=== PATIENT | male | born 1985 | race African-American/Black ===

== ENCOUNTER 2019-11-03 14:07 | Emergency (ER) | payer OTHER, SELFPAY ==
[2019-11-03 14:17] VITALS: BP 134/85; PULSE 72; RESP 20; TEMP 36.7; O2SAT 100
[2019-11-03 14:47] LABS: Glucose Point of Care 471 (65-105)
--- NOTE | 2019-11-03 14:48 | ED.RECABL ---
HPI - Recheck/Abnormal Lab/Rx General Chief Complaint: Recheck/Abnormal Lab/Rx Stated Complaint: ELEVATED BS Time Seen by Provider: 11/03/19 14:35 Source: patient and RN notes reviewed Mode of arrival: ambulatory Limitations: no limitations History of Present Illness HPI narrative: Pt is a 34 y/o male with a Hx of DM II, who presents to the ED with c/o hyperglycemia. He notes that he was diagnosed with diabetes roughly 1 year ago, but states that he hasn't taken his prescribed Metformin since November 2018. Pt notes that he has had dizziness, generalized weakness, and blurry vision for the past 2 days. He states that he was evaluated at an urgent care facility earlier today for these symptoms, and was advised to come to the ED due to his BS being 528. Pt denies any ABD pain, headache, or other symptoms. He notes that he rarely checks his BS. MD complaint: abnormal lab Returns today for: other (sent from facility due to abnormal lab) Description of abnormal result: Blood Glucose of 528 Associated symptoms: other (generalized weakness; dizziness; blurred vision) Related Data Home Medications Medication Instructions Recorded Confirmed No Home Medications 11/03/19 11/03/19 Allergies Allergy/AdvReac Type Severity Reaction Status Date / Time lactose AdvReac Unknown Diarrhea Verified 11/03/19 14:38 Shrimp Allergy Unknown Swelling Uncoded 11/22/18 08:15 Review of Systems Review of Systems: All systems reviewed & are unremarkable except as noted in HPI and below Constitutional: Constitutional: Reports weakness (generalized) Eyes: Eyes: Reports blurry vision Gastrointestinal: Gastrointestinal: Denies abdominal pain Neurologic: Reports dizziness and Denies headache(s) PMFSH Past Medical History Medical History Diabetes Right arm fracture Surgical History Surgical History No significant past surgical history Social History Social History Smoking status: Never smoker Exam Narrative: Exam Narrative: General appearance: Well-developed, well-nourished Skin: Normal color Head: Normocephalic, nontraumatic Eyes: Clear conjunctiva ENT: Oropharynx normal, ears normal, nose normal Neck: Supple, nontender Chest and respiratory: Airway patent, no respiratory distress, no accessory muscle use Heart: Regular rate/rhythm Abdomen: Soft, nontender, no organomegaly, quiet bowel sounds Vascular: Normal peripheral pulses, normal capillary refill. Musculoskeletal: Normal range of motion, nontender back Neurologic: Alert and oriented ?3, [employer] is normal as tested, no gross motor deficit Course Course Emergency Course: Improving Vital Signs Vital signs: Vital Signs Temperature 36.7 C 11/03/19 14:17 Pulse Rate 72 11/03/19 14:17 Respiratory Rate 11/03/19 14:17 Blood Pressure 134/85 11/03/19 14:17 Pulse Oximetry 100 11/03/19 14:17 Temperature 36.7 C 11/03/19 14:17 Pulse Rate 72 11/03/19 14:17 Respiratory Rate 11/03/19 14:17 Blood Pressure 134/85 11/03/19 14:17 Pulse Oximetry 100 11/03/19 14:17 MDM - Recheck/Abnormal Lab/Rx MDM Narrative Medical decision making narrative: Patient is noncompliance with his medications, last time had his diabetes medicine almost 1 year ago. Labs, blood gas, IV fluid ordered. Further plan to follow Differential Diagnosis Differential diagnosis: Likely encounter for medication refill and other (DKA, hyperosmolar hyperglycemia, noncompliance, electrolyte imbalance, urinary infection.) Lab Data Result diagrams: 11/03/19 14:43
[2019-11-03 14:50] LABS: Basophils Percent Auto 0.6 % (0.2-1.2); Eosinophils Absolute Auto 0.1 K/mm3 (0-0.3); Eosinophils Percent Auto 1.6 % (0-4.4); Hematocrit 45.2 % (42.0-52.0); Hemoglobin 15.4 g/dL (14.0-18.0); Immature Granulocyte Absolute 0.02 K/mm3 (0.00-0.031); Immature Granulocyte Percent A 0.3 % (0-0.5); Lymphocytes Absolute Auto 2.47 K/mm3 (0.9-3.2); Lymphocytes Percent Auto 39.1 % (18.3-44.2); Mean Corpuscular HGB Conc 34.1 g/dl (32-36); Mean Corpuscular Hemoglobin 28.3 pg (26-34); Mean Corpuscular Volume 83.1 fl (80-100); Mean Platelet Volume 10.4 fl (7.4-10.4); Monocytes Absolute Auto 0.4 K/mm3 (0.1-0.6); Monocytes Percent Auto 6.5 % (2.6-8.5); Neutrophils Absolute Auto 3.3 K/mm3 (1.3-6.7); Neutrophils Percent Auto 51.9 % (45.5-73.1); Platelet Count Result 258 k/mm3 (150-375); Red Blood Count 5.44 M/mm3 (4.6-6.20); Red Cell Distribution Width 12.4 % (11.5-14.5); White Blood Count 6.3 K/mm3 (4.5-10.0)
[2019-11-03 15:03] LABS: Alanine Aminotransferase 28 U/L (4-50); Albumin Level 4.2 g/dL (3.5-5.1); Alkaline Phosphatase 77 U/L (38-126); Aspartate Amino Transferase 29 U/L (17-59); Bilirubin,Total 0.4 mg/dL (0.2-1.3); Blood Urea Nitrogen 13 mg/dL (9-20); Calcium 9.4 mg/dL (8.4-10.2); Carbon Dioxide 25 mmol/L (22-30); Chloride 93 mmol/L (98-107); Estimated CRCL calculation 152 ml/min; Estimated Glomerular Filt Rate > 60; Glucose 463 mg/dL (75-110); Magnesium 1.9 mg/dL (1.6-2.3); Phosphorus 4.7 mg/dL (2.5-4.5); Sodium 130 mmol/L (137-145)
[2019-11-03 15:06] LABS: Beta-Hydroxybutyrate/Acetoacetate 0.34 mmol/L (0.02-0.27)
[2019-11-03 15:15] LABS: Alveolar/Arterial O2 Gradient 15.2 mmHg; Base Excess ABG 0.6 mEq/l (+/-2.0); Device ROOM AIR; Fractional Inspired Oxygen 21 %; HCO3 ABG 26.2 mEq/l (22.0-26.0); Modified Allen's Test Pass; Oxygen Content ABG 20.9 %vol (16.0-22.0); Oxygen Saturation ABG 95.6 % (95.0-100.0); Oxyhemoglobin 94.8 % THb (90.0-100.0); PCO2 ABG 45.4 mmHg (35.0-45.0); PO2 ABG 80.2 mmHg (80.0-100.0); PO2 FiO2 Ratio Arterial Blood 3.82 %; Site Drawn LEFT RADIAL; Total Hemoglobin 15.7 g/dL (12.0-18.0); pH ABG 7.379 (7.350-7.450)
[2019-11-03] MEDS: SODIUM CHLORIDE 0.9% IV 1,000 ML 999 ML IV CONT ×2 (15:17→17:28)
[2019-11-03 16:49] LABS: Glucose Point of Care 362 (65-105)
[2019-11-03 17:04] LABS: Add Urine Microscopic? YES; Appearance Urine Clear (Clear); Bilirubin Urine Negative (Negative); Blood Urine 1+ (Negative); Color Urine Straw (Yellow); Glucose Urine UA 3+ mg/dL (Negative); Ketones Urine Trace mg/dL (Negative); Leukocyte Esterase Ur Negative LEU/UL (Negative); Mucus Urine Rare /lpf; Nitrate Urine Negative (Negative); Protein Urine Negative (Negative); RBC Urine 0-2 /hpf (0-2); Urobilinogen Urine Negative mg/dL (<2.0); WBC Urine 0-3 /hpf
[2019-11-03] MEDS: INSULIN HUMAN REGULAR (*BKC) 100 UNITS/ML SUB-Q (17:28)
[2019-11-03 18:51] LABS: Glucose Point of Care 287 (65-105)
== END 2019-11-03 18:50 | disposition home or self-care (01) ==
PROVIDERS: Emergency Provider Emergency Medicine
DX: E11.65 Type 2 diabetes mellitus with hyperglycemia (principal); Z91.14 Patient's other noncompliance with medication regimen
CPT/HCPCS: 36415; 36600; 80053; 81001; 82010; 82805; 82948; 83735; 84100; 85025; 96360; 96361; 99283; J1815; J7030

== ENCOUNTER → 2021-01-25 08:14 | Outpatient (CLI) | payer OTHER, SELFPAY ==
[2021-01-27 00:40] LABS: SARS-CoV-2 RNA PCR Negative
== END ==
PROVIDERS: PCP Emergency Medicine; Visit Provider Emergency Medicine
DX: J06.9 Acute upper respiratory infection, unspecified (principal); Z20.822 Contact with and (suspected) exposure to COVID-19
CPT/HCPCS: C9803; U0003; U0005

== ENCOUNTER → 2021-02-20 06:39 | Outpatient (CLI) | payer OTHER, SELFPAY ==
[2021-02-21 16:58] LABS: SARS-CoV-2 RNA PCR Negative
== END ==
PROVIDERS: PCP Emergency Medicine; Visit Provider Emergency Medicine
DX: R51.9 Headache, unspecified (principal); Z20.822 Contact with and (suspected) exposure to COVID-19
CPT/HCPCS: C9803; U0003; U0005

== ENCOUNTER → 2021-09-06 02:15 | Outpatient (CLI) | payer OTHER, SELFPAY ==
[2021-09-06 17:54] LABS: SARS-CoV-2 RNA PCR Negative
== END ==
PROVIDERS: PCP Emergency Medicine; Visit Provider Emergency Medicine
DX: R68.89 Other general symptoms and signs (principal); Z20.822 Contact with and (suspected) exposure to COVID-19
CPT/HCPCS: C9803; U0003; U0005

== ENCOUNTER → 2021-10-19 02:17 | Outpatient (CLI) | payer OTHER, SELFPAY ==
[2021-10-20 15:56] LABS: SARS-CoV-2 RNA PCR Negative
== END ==
PROVIDERS: PCP Emergency Medicine; Visit Provider Emergency Medicine
DX: J06.9 Acute upper respiratory infection, unspecified (principal); Z20.822 Contact with and (suspected) exposure to COVID-19
CPT/HCPCS: C9803; U0003; U0005

== ENCOUNTER 2022-10-16 14:54 | Emergency (ER) | payer OTHER, SELFPAY ==
--- NOTE | ~2022-10-16 | CT_ITS ---
EXAMINATION: CT abdomen pelvis w con DATE: 10/16/2022 16:13 INDICATION: Left abdominal pain TECHNIQUE: Computed tomography (CT) of the abdomen and pelvis was performed with 100 mL Omnipaque-350 intravenous contrast. Automated exposure control and iterative reconstruction technique were employe d. The dose-length product was 1432.18 mGy-cm. COMPARISON: None FINDINGS: Lung bases are clear. Arch size is normal. No pericardial or pleural effusion. Calcified right hilar and mediastinal lymph nodes as well as a small splenic calcification consistent with old granulomatou s disease. Liver, gallbladder, pancreas, bilateral adrenal glands and kidneys are normal. Metallic fo reign body in the posterolateral left chest wall present since chest radiograph dated 12/09/2017. There are few scattered colonic diverticula without adjacent inflammatory stranding to suggest diverticula r colitis. Small bowel and appendix are normal. Bladder is normal. No free intraperitoneal gas or flu id. No pathologically enlarged abdominal or pelvic lymphadenopathy. Indeterminate lytic lesion with t hin sclerotic margins along the posterior wall of the L4 vertebral body. IMPRESSION: 1. No acute intra-abdominal/pelvic process. 2. Lytic lesion with thin sclerotic margin along the posterior wall of the L4 vertebral body. Would r ecommend nonemergent pre and postcontrast lumbar spine MR for further evaluation. Reviewed, dictated and finalized at location [facility] IMPRESSION: 1. No acute intra-abdominal/pelvic process. 2. Lytic lesion with thin sclerotic margin along the posterior wall of the L4 v ertebral body. Would recommend nonemergent pre and postcontrast lumbar spine MR for further evaluation.
[2022-10-16 14:56] VITALS: BP 152/87; PULSE 90; RESP 20; TEMP 37; O2SAT 99
--- NOTE | 2022-10-16 15:16 | ED.GENADULT ---
HPI - General Adult General Chief complaint: Abdominal Pain Stated complaint: acid reflux? Time Seen by Provider: 10/16/22 15:05 History of Present Illness HPI narrative: 37-year-old male with history of type 2 diabetes and noncompliance with his diabetes medications presenting to the emergency department for evaluation of left-sided abdominal pain that is worsened with eating. Patient states over the last 4 days he has had increased left-sided abdominal pain. Patient states he has left upper and lower abdominal pain. Patient states it is worsened with eating. Patient reports he does work at [employer] and has frequently been eating at [employer]. Related Data Allergies Allergy/AdvReac Type Severity Reaction Status Date / Time lactose AdvReac Unknown Diarrhea Verified 10/16/22 15:46 Shrimp Allergy Unknown Swelling Uncoded 10/16/22 15:46 Review of Systems Review of Systems: CONSTITUTIONAL: Denies fever, chills, or sweats. EYES: Denies visual changes, redness, or discharge. ENT: Denies rhinorrhea, congestion, sore throat, or otalgia. CARDIOVASCULAR: Denies chest pain, palpitations, or edema. RESPIRATORY: Denies cough or dyspnea. GASTROINTESTINAL: See HPI GENITOURINARY: Denies dysuria or hematuria. SKIN: Denies rash or itching. MUSCULOSKELETAL: Denies back pain, joint pain, or myalgia. NEUROLOGIC: Denies headache, numbness, or weakness. [facility] Past Medical History Medical History (Updated 10/17/22 @ 00:00 by Casie Luis) Diabetes Right arm fracture Surgical History Surgical History No significant past surgical history Social History Social History Smoking status: Never smoker Exam Narrative: APPEARANCE: Well appearing, no pain, no distress, well-nourished. HEAD: normocephalic, atraumatic. EYES: PERRLA/EOMI, conjunctivae clear. NOSE: Normal no drainage EARS:TMS clear with good light reflex. THROAT: Pharynx clear, no exudate. NECK: Supple. No adenopathy, no masses. RESPIRATORY: Airway patent, respirations nonlabored. Clear to auscultation bilaterally, no rales, rhonchi, wheezing. CARDIOVASCULAR: Regular rate and rhythm without murmurs rubs or gallops. ABDOMINAL: Left upper and left lower quadrant abdominal pain with tenderness to palpation. Normal bowel sounds. MUSCULOSKELETAL: Moves all extremities. Strength/ROM intact, No edema, No calf tenderness. NEURO: Alert. Cranial nerves II through XII intact. SKIN: Warm, dry. Normal Color Course Course Emergency Course: Patient reported some minor improvement of his symptoms with the GI cocktail. CT scan showed no intra-abdominal pathology but did show a lytic lesion on L4. Patient was updated on the results of his work-up and was also encouraged of close follow-up with GI and also with his primary care physician for additional imaging of the L4 lesion. Diagnosis did include colitis, gastritis, pancreatitis. Due to the negative findings of the CT scan and normal labs including a normal white blood cell count and normal CMP most likely diagnosis is gastritis. Patient was educated on dietary modifications and on the importance of being more compliant with his diabetes medications. All questions and concerns were addressed. Patient was comfortable with the plan with discharge and close follow-up. Vital Signs Vital signs: Vital Signs Temperature 98.6 F 10/16/22 14:56 Pulse Rate 90 10/16/22 14:56 Respiratory Rate 20 10/16/22 14:56 Blood Pressure 152/87 H 10/16/22 14:56 Pulse Oximetry 99 10/16/22 14:56 Oxygen Delivery Room Air 10/16/22 14:56 Temperature 98.6 F 10/16/22 14:56 Pulse Rate 90 10/16/22 14:56 Respiratory Rate 20 10/16/22 14:56 Blood Pressure 152/87 H 10/16/22 14:56 Pulse Oximetry 99 10/16/22 14:56 Oxygen Delivery Room Air 10/16/22 14:56 Medical Decision Making Vital Signs Vital Signs: Vital Signs Temperatu
[2022-10-16] MEDS: SODIUM CHLORIDE 0.9% IV 1,000 ML 999 ML IV CONT (15:34)
[2022-10-16] MEDS: ONDANSETRON INJ 4 MG/2 ML VIAL IV PUSH (15:35)
[2022-10-16] MEDS: BELLADONNA ALK/PHENOB ELIX 10 ML, MAG HYDROX/ALUMINUM HYD/SIMETH 30 ML, LIDOCAINE HCL 2... PO (15:44)
[2022-10-16 15:48] LABS: Basophils Percent Auto 0.5 % (0.2-1.2); Eosinophils Absolute Auto 0.1 K/mm3 (0-0.3); Eosinophils Percent Auto 1.6 % (0-4.4); Hemoglobin 16.7 g/dL (14.0-18.0); Immature Granulocyte Absolute 0.06 K/mm3 (0.00-0.031); Immature Granulocyte Percent A 0.9 % (0-0.5); Lymphocytes Absolute Auto 2.19 K/mm3 (0.9-3.2); Lymphocytes Percent Auto 34.1 % (18.3-44.2); Mean Corpuscular HGB Conc 33.4 g/dl (32-36); Mean Corpuscular Hemoglobin 28.4 pg (26-34); Mean Platelet Volume 9.5 fl (7.4-10.4); Monocytes Absolute Auto 0.4 K/mm3 (0.1-0.6); Monocytes Percent Auto 6.7 % (2.6-8.5); Neutrophils Absolute Auto 3.6 K/mm3 (1.3-6.7); Neutrophils Percent Auto 56.2 % (45.5-73.1); Platelet Count Result 291 k/mm3 (150-375); Red Blood Count 5.88 M/mm3 (4.6-6.20); White Blood Count 6.4 K/mm3 (4.5-10.0)
[2022-10-16 15:58] LABS: Alanine Aminotransferase 26 U/L (6-50); Albumin Level 4.1 g/dL (3.5-5.1); Alkaline Phosphatase 58 U/L (38-126); Anion Gap 6 mmol/L (8-16); Aspartate Amino Transferase 26 U/L (17-59); Bilirubin,Total 0.2 mg/dL (0.2-1.3); Blood Urea Nitrogen 11 mg/dL (9-20); Carbon Dioxide 27 mmol/L (22-30); Chloride 99 mmol/L (98-107); Estimated CRCL calculation 147 ml/min; Estimated Glomerular Filt Rate > 60; Glucose 355 mg/dL (65-110); Lactic Acid Reflex 1.9 mmol/L (0.7-2.0); Lipase 91 U/L (23-300); Potassium 4.1 mmol/L (3.4-5.0); Sodium 132 mmol/L (137-145)
[2022-10-16] MEDS: PANTOPRAZOLE SODIUM IV 40 MG VIAL IV PUSH (17:00)
== END 2022-10-16 17:15 | disposition home or self-care (01) ==
PROVIDERS: Emergency Provider Emergency Medicine; PCP Emergency Medicine
DX: R10.12 Left upper quadrant pain (principal); E11.65 Type 2 diabetes mellitus with hyperglycemia; T38.3X6A Underdosing of insulin and oral hypoglycemic [antidiabetic] drugs, initial encounter; Z91.128 Patient's intentional underdosing of medication regimen for other reason; Z79.84 Long term (current) use of oral hypoglycemic drugs; M89.9 Disorder of bone, unspecified
CPT/HCPCS: 36415; 74177; 80053; 83605; 83690; 85025; 96361; 96374; 96375; 99284; A9270; C9113; J2405; J7030; Q9967

== ENCOUNTER 2023-07-02 20:38 | Emergency (ER) | payer OTHER, SELFPAY ==
[2023-07-02 20:57] VITALS: BP 142/94; PULSE 101; RESP 20; TEMP 36.7; O2SAT 98
--- NOTE | 2023-07-02 21:31 | PC.NURSE ---
patient states the wait is too long and left from triage
== END 2023-07-02 22:48 | disposition left against medical advice (07) ==
PROVIDERS: PCP Emergency Medicine
DX: M54.6 Pain in thoracic spine (principal)
CPT/HCPCS: 99199